=== PATIENT | male | born 1980 | race Caucasian/White ===

== ENCOUNTER 2017-09-05 08:12 | Inpatient (IN) | payer OTHER ==
[~2017-09-05] VITALS: Ht 177.8 cm; Wt 90.7 kg
[~2017-09-05 08:12] MED LIST: ACETAMINOPHEN-1 EAC1 PO; AZITHROMYCIN 2250 MG PO; BACTRIM DS TAB1 EACH PO; BENZONATATE200 MG PO; CLEOCIN HCL300 MG PO; CYCLOBENZAPRINE5 MG PO; DOXYCYCLINE 10100 MG PO; FLEXERIL PO; HYDROCODON-ACE1 EAC7 PO; IBUPROFEN 800800 M1 PO; IBUPROFEN 800800 MG PO; MEDROLDOSEPACK PO; NAPROSYN375 MG PO; NAPROSYN500 MG PO; NOHOMEMEDICATIONS; NORCO 5-325 TA1 EAC1 PO; NORCO 5-325 TA1 EACH PO; PENICILLIN VK250 MG PO; PERCOCET 5-3251 EACH PO; PREDNISONE 20 M20 M1 PO; PREDNISONE50 MG PO; TINACTIN108 GM TP; TRAMADOL 50 MG50 MG PO; TRIAMCINOLONE A15 G1 TP; VENTOLIN HFA 1818 GM INH; ZPAK PO
[2017-09-05 08:21] VITALS: BP 142/101
[2017-09-05 08:41] LABS: HEMATOCRIT 46.5 % (42.0-52.0); HEMOGLOBIN 16.2 gm/dL (14.0-18.0); MCH 32.3 pg (26.0-34.0); MCHC 34.9 g/dL (28.0-37.0); MCV 92.6 fL (80.0-100.0); MPV 7.8 fl. (7.2-11.1); NUCLEATED RBCS 0 /100WBC; PLATELET COUNT* 287 thou/uL (150-400); RBC 5.02 mil/uL (4.50-6.00); RDW-CV 12.5 % (10.5-14.5); WBC 13.8 thou/uL (4.0-11.0)
[2017-09-05 08:47] LABS: CALCIUM 9.6 mg/dL (8.5-10.1); CREATININE 1.1 mg/dL (0.6-1.3); POTASSIUM 3.3 mmol/L (3.5-5.1)
[2017-09-05 08:52] LABS: ALBUMIN 4.1 g/dL (3.4-5.0); TOTAL BILIRUBIN 0.9 mg/dL (<0.1-1.0); TOTAL PROTEIN 7.8 g/dL (6.4-8.2)
[2017-09-05 09:13] LABS: URINE BLOOD 3+ (Negative); URINE CLARITY CLEAR; URINE COLOR YELLOW; URINE GLUCOSE-RANDOM NEGATIVE (Negative); URINE KETONES 2+ (Negative); URINE LEUKOCYTES-REFLEX NEGATIVE (Negative); URINE NITRITE-REFLEX NEGATIVE (Negative); URINE PROTEIN 1+ (Negative)
[2017-09-05 09:14] LABS: ABSOLUTE BASOPHILS 0.1 thou/uL (0.0-0.2); ABSOLUTE EOSINOPHILS 0.3 thou/uL (0.0-0.7); ABSOLUTE LYMPHOCYTES 0.8 thou/uL (0.8-5.3); ABSOLUTE MONOCYTES 0.8 thou/uL (0.0-1.2); ABSOLUTE NEUTROPHILS 11.7 thou/uL (1.6-8.1); PLATELET ESTIMATE ADEQUATE
[2017-09-05 09:16] LABS: ICTOTEST (BILI CONFIRMATORY) Negative (Negative); URINE BILIRUBIN 1+ (Negative)
[2017-09-05 09:18] LABS: SQUAMOUS 4-10 Moderate /LPF (0-3); URINE RBC >20 Many /HPF (0-2); URINE WBC-REFLEX 0-5 Rare /HPF (0-5)
[2017-09-05 09:19] LABS: BACTERIA-REFLEX 1-9 Few /HPF (None Seen); CASTS None Seen /LPF (None Seen); CRYSTALS None Seen /LPF (None Seen); MUCUS None Seen strn/LPF (None Seen)
[2017-09-05 10:36] VITALS: BP 140/75
[2017-09-05 11:08] LABS: CALCIUM 9.4 mg/dL (8.5-10.1); CREATININE 1.2 mg/dL (0.6-1.3); MAGNESIUM 2.1 mg/dL (1.8-2.4); POTASSIUM 3.3 mmol/L (3.5-5.1)
[2017-09-05 11:23] VITALS: BP 142/88
[2017-09-05 16:00] VITALS: BP 126/89
--- NOTE | 2017-09-05 16:06 | NUR ---
CM SPOKE TO THE PATIENT TO DISCUSS HOME SITUATION, DISCHARGE PLANNING, AND TO INFORM OF THE ROLE OF CM. PATIENT ALERT, ORIENTED, AND INDEPENDENT WITH ADL'S. PATIENT RESIDES AT HOME WITH FATHER. PATIENT USES 0 DME. PATIENT DOES NOT CURRENTLY HAVE INSURANCE. CM PROVIDED THE PATIENT WITH A COMMUNITY RESOURCE LIST AND A PRESCRIPTION ASSISTANCE CARD. CM ALSO SENT A REFERRAL TO [facility]. CM WILL REMAIN AVIALABLE TO ASSIST AND FOLLOW NEEDED.
--- NOTE | 2017-09-05 19:25 | NUR ---
PATIENT REMAINED ALERT AND ORIENTED X'S 4. VITAL SIGNS AND SPO2 STABLE. IV CLEAN, FLUIDS INFUSING. PAIN CONTROLLED WITH PAIN MEDS. HAD A BOUT A NAUSEA WHEN DILAUDID WAS GIVEN. ZOFRAN GIVEN, NAUSEA SUBSIDED. UP AD KARO. CALL LIGHT WITHIN REACH. WILL CONTINUE TO MONITOR.
[2017-09-05 19:30] VITALS: BP 143/98
[2017-09-06] VITALS (7 sets, daily range): BP systolic 125–143; BP diastolic 79–98
--- NOTE | 2017-09-06 04:45 | NUR ---
PATIENT HAS REMAINED ALERT AND ORIENTED X 4 THROUGHOUT THE SHIFT AND RESTING AT INTERVALS ON HOURLY ROUNDS. MEDICATED FOR LEFT FLANK PAIN X 2 THIS SHIFT TO GOOD EFFECT. NO NAUSEA. NPO AT MIDNIGHT. URINE OUTPUT STRAINED WITHOUT STONES RETRIEVED. VITAL SIGNS STABLE. CONTINUE TO MONITOR.
[2017-09-06 06:29] LABS: HEMATOCRIT 42.5 % (42.0-52.0); HEMOGLOBIN 14.6 gm/dL (14.0-18.0); MCH 32.6 pg (26.0-34.0); MCHC 34.4 g/dL (28.0-37.0); MCV 94.6 fL (80.0-100.0); MPV 7.9 fl. (7.2-11.1); RBC 4.49 mil/uL (4.50-6.00); RDW-CV 12.3 % (10.5-14.5); WBC 9.3 thou/uL (4.0-11.0)
[2017-09-06 06:36] LABS: CALCIUM 8.5 mg/dL (8.5-10.1); CREATININE 1.1 mg/dL (0.6-1.3)
[2017-09-06] MEDS ORDERED: HYDROCODONE-AP1 EAC6 PO (13:05)
[2017-09-06] MEDS ORDERED: CIPRO250 M1 PO (13:06)
--- NOTE | 2017-09-06 14:44 | NUR ---
PATIENT LEFT UNIT AT 1400. ALERT AND ORIENTED X4. UP AD KARO IN ROOM. IV DC'D. PAIN BEING MANAGED WITH PAIN MEDICATION RECEIVED IN THE PACU. DENIES NAUEA. VSS ON ROOM AIR. HOURLY ROUNDS HAVE BEEN MAINTAINED THROUGHOUT SHIFT WHILE ON UNIT. LEFT WITH UNRELATED ADULT VIA CAR.
--- NOTE | 2017-09-24 08:22 | OP ---
[facility] [address] [place] [address] OPERATIVE REPORT Name: JEROD MARTINEZ Room: [address] .R.#: [id number] Admission: 09/05/17 Attend Phys: Dipesh Caro, Discharge: 09/06/17 Date of : 78 Report #: [id number] THIS REPORT FOR: //name// CC: Zack Caro SURGEON: Gavin James MD. PREOPERATIVE DIAGNOSIS: Left ureteral stone. POSTOPERATIVE DIAGNOSIS: Left ureteral stone. PROCEDURE: [facility]edar cystoscopy with left retrograde pyelogram, left ureteroscopy, holmium laser stone and double-J stent placement. COMPLICATIONS: None. INDICATIONS: A 36-year-old white male with a history of severe left flank pain, went to [facility] and then came to [place] [facility]. He has had 2 trips to the Emergency Room. He is still dependent on IV narcotics. He was given all options and wishes to have ureteroscopy. He understands risks of bleeding, infection, another procedure, cardiovascular and pulmonary complications, ureteral stricture, the fact that he will have a ureteral stent, which must be removed. He voiced understanding of that. He understands he also may have recurrent stones. DESCRIPTION OF PROCEDURE: After informed consent was obtained, the patient was sterilely prepped and draped in dorsal lithotomy position and given preoperative antibiotics. Cystoscopy was carried out. No abnormalities were seen in the bladder. Left retrograde pyelogram was performed which showed the filling defect at the proximal left ureter. He also had some very large phleboliths in the left lower quadrant, but not in the ureter. The stone was approximately 7-8 mm in size. I first placed a sensor wire and then dilated the ureteral orifice. It was very small, dilated with a 12-Slovenian ureteral balloon dilator and then placed a ureteral access sheath and then looked up with the ureteroscope. The ureteral access sheath would not easily slide past up over the iliac vessels or really much past the ureteral orifice, so I stopped any attempt to get the ureteral access sheath up any further, but I was able to advance the flexible ureteroscope. Stone was seen, broken into several pieces; however, then they washed retrograde up into the kidney and I was unable to place the scope secondary to impingement from the ureteral access sheath. The length of it was too long. This was 36, so I pulled the ureteral access sheath out and then slid the ureteroscope up over the sensor wire, leaving the ZIPwire as a safety wire the entire time. Then, the stone was seen in the kidney broken up. Everything looked like it was probably broken up into less than 2 mm pieces. I was able to look in several calices and did not see any other stones. A 4.8 x 20 stent was then placed showing good curl in the kidney and [place] [address] OPERATIVE REPORT Name: JEROD MARTINEZ Room: [address] [facility].#: [id number] Admission: 09/05/17 Attend Phys: Dipesh Caro, Discharge: 09/06/17 Date of : 78 Report #: [id number] The plan will be to remove the stent in approximately 10 days. We will have the patient do inversion exercises. <ELECTRONICALLY SIGNED> By: Gavin James MD 09/24/17 0822 [id number] James MD /nt
== END 2017-09-06 14:00 | disposition home or self-care (01) | DRG 670 ==
LOC: M.ERS 08:12 → M.TBA-ER 09:57 → M.ORTHSURG 09:57
PROVIDERS: Emergency Medicine Emergency Medical Services; ADMIT Family Medicine
PROC: BT1FYZZ Fluoroscopy of Left Kidney, Ureter and Bladder using Other Contrast (ICD-10-PCS; principal; 2017-09-06)
PROC: 0T778DZ Dilation of Left Ureter with Intraluminal Device, Via Natural or Artificial Opening Endoscopic (ICD-10-PCS; principal; 2017-09-06)
PROC: 0TC78ZZ Extirpation of Matter from Left Ureter, Via Natural or Artificial Opening Endoscopic (ICD-10-PCS; principal; 2017-09-06)
DX: N20.1 Calculus of ureter (principal); J45.909 Unspecified asthma, uncomplicated; F17.210 Nicotine dependence, cigarettes, uncomplicated; E87.6 Hypokalemia; Z87.81 Personal history of (healed) traumatic fracture; Z79.899 Other long term (current) drug therapy; Z88.0 Allergy status to penicillin; Z91.041 Radiographic dye allergy status; Z28.21 Immunization not carried out because of patient refusal

== ENCOUNTER 2017-09-24 08:25 | Emergency (ER) | payer OTHER ==
[~2017-09-24] VITALS: Ht 182.9 cm; Wt 83.9 kg
[~2017-09-24 08:25] MED LIST changes: +CIPRO250 M1 PO; +HYDROCODONE-AP1 EAC6 PO
[2017-09-24 08:48] LABS: URINE BILIRUBIN NEGATIVE (Negative); URINE BLOOD 3+ (Negative); URINE CLARITY SL CLOUDY; URINE COLOR RED; URINE GLUCOSE-RANDOM NEGATIVE (Negative); URINE KETONES TRACE (Negative); URINE PROTEIN 3+ (Negative)
[2017-09-24 08:52] LABS: ABSOLUTE EOSINOPHILS 0.3 thou/uL (0.0-0.7); ABSOLUTE LYMPHOCYTES 1.4 thou/uL (0.8-5.3); ABSOLUTE MONOCYTES 0.6 thou/uL (0.0-1.2); ABSOLUTE NEUTROPHILS 4.9 thou/uL (1.6-8.1); BASOPHILS 0.6 %; EOSINOPHILS 3.6 %; HEMOGLOBIN 14.6 gm/dL (14.0-18.0); LYMPHOCYTES 19.5 %; MCH 32.4 pg (26.0-34.0); MCHC 34.9 g/dL (28.0-37.0); MONOCYTES 8.9 %; MPV 7.9 fl. (7.2-11.1); NUCLEATED RBCS 0 /100WBC; PLATELET COUNT* 222 thou/uL (150-400); POLYS 67.4 %; RBC 4.51 mil/uL (4.50-6.00); RDW-CV 12.5 % (10.5-14.5); WBC 7.3 thou/uL (4.0-11.0)
[2017-09-24 08:56] LABS: BACTERIA-REFLEX 1-9 Few /HPF (None Seen); CASTS None Seen /LPF (None Seen); CRYSTALS None Seen /LPF (None Seen); MUCUS 0-3 Light strn/LPF (None Seen); SQUAMOUS 0-3 Few /LPF (0-3); URINE LEUKOCYTES-REFLEX 2+ (Negative); URINE NITRITE-REFLEX POSITIVE (Negative); URINE RBC >20 Many /HPF (0-2); URINE WBC-REFLEX 6-15 Few /HPF (0-5)
[2017-09-24 09:03] LABS: CALCIUM 8.4 mg/dL (8.5-10.1); CREATININE 0.9 mg/dL (0.6-1.3); POTASSIUM 3.8 mmol/L (3.5-5.1)
[2017-09-24 09:07] LABS: ALBUMIN 3.4 g/dL (3.4-5.0); TOTAL BILIRUBIN 0.3 mg/dL (<0.1-1.0); TOTAL PROTEIN 6.6 g/dL (6.4-8.2)
[2017-09-24] MEDS ORDERED: NORCO 5-325 TA1 EACH PO (10:57)
[2017-09-24] MEDS ORDERED: IBUPROFEN 800800 M1 PO (10:57)
[2017-09-24] MEDS ORDERED: FLOMAX0.4 MG PO (10:57)
[2017-09-24] MEDS ORDERED: BACTRIM DS TAB1 EACH PO (10:58)
[2017-09-24 11:13] VITALS: BP 129/89
== END 2017-09-24 11:14 | disposition home or self-care (01) ==
LOC: M.ERS 08:25
PROVIDERS: Emergency Medicine Emergency Medical Services
DX: N20.0 Calculus of kidney (principal); R31.9 Hematuria, unspecified; J45.909 Unspecified asthma, uncomplicated; Z87.442 Personal history of urinary calculi; Z88.0 Allergy status to penicillin; Z72.0 Tobacco use

== ENCOUNTER 2018-03-18 21:36 | Emergency (ER) | payer OTHER ==
[~2018-03-18] VITALS: Ht 182.9 cm; Wt 86.2 kg
[~2018-03-18 21:36] MED LIST changes: +FLOMAX0.4 MG PO
[2018-03-18] MEDS ORDERED: NORCO 7.5-3251 EACH PO (23:25)
[2018-03-18] MEDS ORDERED: ONDANSETRON HCL4 M2 PO (23:25)
[2018-03-18 23:33] VITALS: BP 125/80
== END 2018-03-18 23:34 | disposition home or self-care (01) ==
LOC: M.ERS 21:36
DX: S06.0X0A Concussion without loss of consciousness, initial encounter (principal); J45.909 Unspecified asthma, uncomplicated; F17.210 Nicotine dependence, cigarettes, uncomplicated; Z88.0 Allergy status to penicillin; Z91.041 Radiographic dye allergy status; W22.8XXA Striking against or struck by other objects, initial encounter; Y93.89 Activity, other specified; Y92.89 Other specified places as the place of occurrence of the external cause; Y99.8 Other external cause status

== ENCOUNTER 2018-08-17 10:08 | Emergency (ER) | payer OTHER ==
[~2018-08-17] VITALS: Ht 182.9 cm; Wt 88.5 kg
[~2018-08-17 10:08] MED LIST changes: +NORCO 7.5-3251 EACH PO; +ONDANSETRON HCL4 M2 PO
[2018-08-17 10:56] LABS: INFLUENZA A ANTIGEN None Detected (None Detect); INFLUENZA B ANTIGEN None Detected (None Detect)
[2018-08-17 11:15] LABS: ABSOLUTE EOSINOPHILS 0.2 thou/uL (0.0-0.7); ABSOLUTE LYMPHOCYTES 1.3 thou/uL (0.8-5.3); ABSOLUTE MONOCYTES 0.6 thou/uL (0.0-1.2); ABSOLUTE NEUTROPHILS 3.8 thou/uL (1.6-8.1); BASOPHILS 0.8 %; EOSINOPHILS 3.6 %; HEMOGLOBIN 16.4 gm/dL (14.0-18.0); LYMPHOCYTES 21.6 %; MCH 32.6 pg (26.0-34.0); MCHC 34.2 g/dL (28.0-37.0); MCV 95.2 fL (80.0-100.0); MONOCYTES 10.2 %; MPV 7.9 fl. (7.2-11.1); NUCLEATED RBCS 0 /100WBC; PLATELET COUNT* 202 thou/uL (150-400); POLYS 63.8 %; RBC 5.04 mil/uL (4.50-6.00); RDW-CV 12.9 % (10.5-14.5); WBC 5.9 thou/uL (4.0-11.0)
[2018-08-17] MEDS ORDERED: ZOFRAN4 MG PO (11:23)
[2018-08-17] MEDS ORDERED: TESSALON PERLE100 MG PO (11:23)
[2018-08-17 11:32] LABS: CALCIUM 9.9 mg/dL (8.5-10.1); CREATININE 0.9 mg/dL (0.6-1.3); POTASSIUM 4.4 mmol/L (3.5-5.1)
[2018-08-17 11:37] LABS: TOTAL BILIRUBIN 0.5 mg/dL (<0.1-1.0); TOTAL PROTEIN 7.7 g/dL (6.4-8.2)
[2018-08-17 12:49] VITALS: BP 124/84
== END 2018-08-17 12:49 | disposition home or self-care (01) ==
LOC: M.ERS 10:08
PROVIDERS: Personal Emergency Response Attendant
DX: J06.9 Acute upper respiratory infection, unspecified (principal); F17.210 Nicotine dependence, cigarettes, uncomplicated; J45.909 Unspecified asthma, uncomplicated; Z88.0 Allergy status to penicillin; Z91.041 Radiographic dye allergy status; Z87.442 Personal history of urinary calculi

== ENCOUNTER 2018-11-24 11:07 | Emergency (ER) | payer OTHER ==
[~2018-11-24] VITALS: Ht 182.9 cm; Wt 86.2 kg
[~2018-11-24 11:07] MED LIST changes: +TESSALON PERLE100 MG PO; +ZOFRAN4 MG PO
[2018-11-24] MEDS ORDERED: PROAIR HFA8.5 GM INH ×2 (11:18→12:56)
[2018-11-24] MEDS ORDERED: PREDNISONE 20 M20 MG PO (12:56)
[2018-11-24] MEDS ORDERED: CLARITIN10 MG PO (12:56)
[2018-11-24] MEDS ORDERED: ADVAIR 100-501 EACH INH (12:59)
[2018-11-24 13:25] VITALS: BP 120/88
--- NOTE | 2018-11-25 14:31 | EKG ---
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1980 Requested By: Judith Mathur Order Number: [id number] MD: Jasbir Hatch Measurements Intervals [place] Rate: 73 P: 43 MS: 153 QRS: 54 QRSD: 95 T: 42 QT: 398 QTc: 439 Interpretive Statements Sinus rhythm Probable left ventricular hypertrophy ST elev, probable normal early repol pattern Baseline wander in lead(s) V2 Compared to ECG 10/20/2013 17:59:45 ST (T wave) deviation now present Electronically Signed On 11-25-2018 14:30:49 CDT by Jasbir Hatch [email or web address] <ELECTRONICALLY SIGNED> By: Jasbir Hatch MD, FAC 11/25/18 1430 1152 1152 Jasbir Hatch MD, [facility] /EPI
== END 2018-11-24 13:26 | disposition home or self-care (01) ==
LOC: M.ERS 11:07
DX: J45.901 Unspecified asthma with (acute) exacerbation (principal); F17.210 Nicotine dependence, cigarettes, uncomplicated; Z87.442 Personal history of urinary calculi; Z88.0 Allergy status to penicillin; Z91.041 Radiographic dye allergy status

== ENCOUNTER 2018-12-10 08:17 | Emergency (ER) | payer OTHER ==
[~2018-12-10] VITALS: Ht 182.9 cm; Wt 90.7 kg
[~2018-12-10 08:17] MED LIST changes: +ADVAIR 100-501 EACH INH; +CLARITIN10 MG PO; +PREDNISONE 20 M20 MG PO; +PROAIR HFA8.5 GM INH
[2018-12-10] MEDS ORDERED: CLEOCIN HCL150 MG PO (08:35)
[2018-12-10] MEDS ORDERED: ULTRAM 50MG TAB50 MG PO (08:35)
[2018-12-10 08:39] VITALS: BP 146/109
== END 2018-12-10 08:40 | disposition home or self-care (01) ==
LOC: M.ERS 08:17
DX: K02.9 Dental caries, unspecified (principal); F17.210 Nicotine dependence, cigarettes, uncomplicated; J45.909 Unspecified asthma, uncomplicated; Z88.0 Allergy status to penicillin; Z91.041 Radiographic dye allergy status; Z87.442 Personal history of urinary calculi

== ENCOUNTER 2019-08-02 17:55 | Emergency (ER) | payer OTHER ==
[~2019-08-02] VITALS: Ht 182.9 cm; Wt 90.7 kg
[~2019-08-02 17:55] MED LIST changes: +CLEOCIN HCL150 MG PO; +ULTRAM 50MG TAB50 MG PO
[2019-08-02 19:44] LABS: INFLUENZA A ANTIGEN Negative (Negative)
[2019-08-02] MEDS ORDERED: PROAIR HFA8.5 GM INH (20:37)
[2019-08-02] MEDS ORDERED: TAMIFLU75 MG PO (20:37)
[2019-08-02] MEDS ORDERED: PREDNISONE 10 M10 MG PO (20:37)
[2019-08-02] MEDS ORDERED: TYLENOL WITH CO1 TA1 PO (20:38)
[2019-08-02 21:05] VITALS: BP 138/76
== END 2019-08-02 21:05 | disposition home or self-care (01) ==
LOC: M.ERS 17:55
PROVIDERS: Physician Assistant
DX: J45.901 Unspecified asthma with (acute) exacerbation (principal); J10.1 Influenza due to other identified influenza virus with other respiratory manifestations; F17.210 Nicotine dependence, cigarettes, uncomplicated; Z87.442 Personal history of urinary calculi; Z88.0 Allergy status to penicillin; Z88.8 Allergy status to other drugs, medicaments and biological substances

== ENCOUNTER 2019-08-19 02:53 | Emergency (ER) | payer OTHER ==
[~2019-08-19] VITALS: Ht 182.9 cm; Wt 90.7 kg
[~2019-08-19 02:53] MED LIST changes: +PREDNISONE 10 M10 MG PO; +TAMIFLU75 MG PO; +TYLENOL WITH CO1 TA1 PO
[2019-08-19 03:19] LABS: HEMATOCRIT 49.6 % (42.0-52.0); HEMOGLOBIN 17.7 gm/dL (14.0-18.0); MCH 33.4 pg (26.0-34.0); MCHC 35.7 g/dL (28.0-37.0); MCV 93.8 fL (80.0-100.0); MPV 8.1 fl. (7.2-11.1); NUCLEATED RBCS 0 /100WBC; PLATELET COUNT* 229 thou/uL (150-400); RBC 5.29 mil/uL (4.50-6.00); RDW-CV 12.4 % (10.5-14.5); WBC 17.7 thou/uL (4.0-11.0)
[2019-08-19 03:30] LABS: CALCIUM 9.4 mg/dL (8.5-10.1); POTASSIUM 4.6 mmol/L (3.5-5.1)
[2019-08-19 03:35] LABS: ALBUMIN 4.5 g/dL (3.4-5.0); TOTAL BILIRUBIN 1.1 mg/dL (<0.1-1.0); TOTAL PROTEIN 8.6 g/dL (6.4-8.2)
[2019-08-19 04:04] LABS: URINE BILIRUBIN NEGATIVE (Negative); URINE BLOOD NEGATIVE (Negative); URINE CLARITY CLEAR; URINE COLOR DARK YELLOW; URINE GLUCOSE-RANDOM TRACE (Negative); URINE KETONES 2+ (Negative); URINE LEUKOCYTES-REFLEX NEGATIVE (Negative); URINE NITRITE-REFLEX NEGATIVE (Negative); URINE PROTEIN TRACE (Negative); URINE UROBILINOGEN 0.2 E.U./dl (0.2-1.0)
[2019-08-19 04:12] LABS: AMP/METHAMP Negative (Negative); BARBITURATES Negative (Negative); BENZODIAZEPINES Negative (Negative); COCAINE Negative (Negative); METHADONE Negative (Negative); OPIATES Negative (Negative); PCP Negative (Negative); THC POSITIVE (Negative)
[2019-08-19 05:32] LABS: ABSOLUTE BASOPHILS 0.2 thou/uL (0.0-0.2); ABSOLUTE LYMPHOCYTES 0.5 thou/uL (0.8-5.3); ABSOLUTE MONOCYTES 0.2 thou/uL (0.0-1.2); ABSOLUTE NEUTROPHILS 16.8 thou/uL (1.6-8.1); ANISOCYTOSIS 1+; PLATELET ESTIMATE ADEQUATE; POIKILOCYTOSIS 1+
[2019-08-19] MEDS ORDERED: TRAMADOL 50 MG50 MG PO (05:35)
[2019-08-19] MEDS ORDERED: ZOFRAN ODT4 MG PO (05:35)
[2019-08-19 05:43] VITALS: BP 142/85
--- NOTE | 2019-08-19 13:43 | EKG ---
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1980 Requested By: Ashutosh Cisneros Order Number: [id number] MD: Naren Lam Measurements Intervals [place] Rate: 85 P: 36 NC: 149 QRS: 57 QRSD: 92 T: 47 QT: 388 QTc: 462 Interpretive Statements Sinus rhythm nonspecific t wave changes Consider left ventricular hypertrophy Compared to ECG 11/24/2018 11:52:31 ST (T wave) deviation seen Electronically Signed On 08-19-2019 13:42:53 MENTALLY IMPAIRED TEACHER by Naren Lam [email or web address] <ELECTRONICALLY SIGNED> By: Naren Lam MD, [facility] 08/19/19 1342 4 Naren Lam MD, FACC /EPI
== END 2019-08-19 05:43 | disposition home or self-care (01) ==
LOC: M.ERS 02:53
PROVIDERS: Emergency Medicine
DX: K52.9 Noninfective gastroenteritis and colitis, unspecified (principal); J45.909 Unspecified asthma, uncomplicated; F17.210 Nicotine dependence, cigarettes, uncomplicated; Z88.0 Allergy status to penicillin; Z91.041 Radiographic dye allergy status; Z87.442 Personal history of urinary calculi; Z79.899 Other long term (current) drug therapy

== ENCOUNTER 2019-09-30 03:58 | Emergency (ER) | payer OTHER ==
[~2019-09-30] VITALS: Ht 152.4 cm; Wt 90.7 kg
[~2019-09-30 03:58] MED LIST changes: +ZOFRAN ODT4 MG PO
[2019-09-30] MEDS ORDERED: HYDROCODON-ACE1 EAC7 PO (04:46)
[2019-09-30] MEDS ORDERED: IBUPROFEN 800800 MG PO (04:46)
[2019-09-30 04:58] VITALS: BP 132/87
== END 2019-09-30 05:02 | disposition home or self-care (01) ==
LOC: M.ERS 03:58
DX: S90.02XA Contusion of left ankle, initial encounter (principal); J45.909 Unspecified asthma, uncomplicated; F17.210 Nicotine dependence, cigarettes, uncomplicated; Z87.442 Personal history of urinary calculi; Z88.0 Allergy status to penicillin; Z91.041 Radiographic dye allergy status; W22.8XXA Striking against or struck by other objects, initial encounter; Y93.64 Activity, baseball; Y92.89 Other specified places as the place of occurrence of the external cause; Y99.8 Other external cause status

== ENCOUNTER 2019-12-23 08:21 | Emergency (ER) | payer OTHER ==
[~2019-12-23] VITALS: Ht 182.9 cm; Wt 93.0 kg
[2019-12-23] MEDS ORDERED: PREDNISONE 20 M20 M1 PO (09:10)
[2019-12-23] MEDS ORDERED: VENTOLIN HFA 1818 GM INH (09:10)
[2019-12-23 09:25] VITALS: BP 125/82
== END 2019-12-23 09:25 | disposition home or self-care (01) ==
LOC: M.ERS 08:21
DX: J45.901 Unspecified asthma with (acute) exacerbation (principal); F17.210 Nicotine dependence, cigarettes, uncomplicated; Z87.442 Personal history of urinary calculi; Z88.0 Allergy status to penicillin; Z88.8 Allergy status to other drugs, medicaments and biological substances

== ENCOUNTER 2020-07-31 06:38 | Emergency (ER) | payer OTHER ==
[~2020-07-31] VITALS: Ht 182.9 cm; Wt 93.0 kg
[2020-07-31] MEDS ORDERED: VENTOLIN HFA 1818 GM INH (07:36)
[2020-07-31] MEDS ORDERED: PREDNISONE50 MG PO (07:36)
[2020-07-31 07:45] VITALS: BP 146/110
== END 2020-07-31 07:45 | disposition home or self-care (01) ==
LOC: M.ERS 06:38
DX: J45.909 Unspecified asthma, uncomplicated (principal); F17.210 Nicotine dependence, cigarettes, uncomplicated; Z91.041 Radiographic dye allergy status; Z88.0 Allergy status to penicillin; Z87.442 Personal history of urinary calculi

== ENCOUNTER 2020-11-01 14:32 | Emergency (ER) | payer OTHER ==
[~2020-11-01] VITALS: Ht 182.9 cm; Wt 97.5 kg
[2020-11-01 15:03] LABS: URINE BILIRUBIN NEGATIVE (Negative); URINE BLOOD NEGATIVE (Negative); URINE CLARITY CLEAR; URINE COLOR YELLOW; URINE GLUCOSE-RANDOM TRACE (Negative); URINE KETONES NEGATIVE (Negative); URINE LEUKOCYTES-REFLEX NEGATIVE (Negative); URINE NITRITE-REFLEX NEGATIVE (Negative); URINE PROTEIN NEGATIVE (Negative); URINE UROBILINOGEN 0.2 E.U./dl (0.2-1.0)
[2020-11-01 15:16] LABS: ABSOLUTE BASOPHILS 0.1 thou/uL (0.0-0.2); ABSOLUTE EOSINOPHILS 0.2 thou/uL (0.0-0.7); ABSOLUTE LYMPHOCYTES 1.1 thou/uL (0.8-5.3); ABSOLUTE MONOCYTES 0.7 thou/uL (0.0-1.2); ABSOLUTE NEUTROPHILS 6.2 thou/uL (1.6-8.1); BASOPHILS 0.9 %; HEMATOCRIT 44.7 % (42.0-52.0); HEMOGLOBIN 15.7 gm/dL (14.0-18.0); LYMPHOCYTES 13.3 %; MCH 34.5 pg (26.0-34.0); MCHC 35.1 g/dL (28.0-37.0); MCV 98.3 fL (80.0-100.0); MONOCYTES 8.6 %; MPV 7.8 fl. (7.2-11.1); NUCLEATED RBCS 0 /100WBC; PLATELET COUNT* 207 thou/uL (150-400); POLYS 75.2 %; RBC 4.55 mil/uL (4.50-6.00); RDW-CV 12.5 % (10.5-14.5); WBC 8.3 thou/uL (4.0-11.0)
[2020-11-01 15:18] LABS: CALCIUM 10.1 mg/dL (8.5-10.1); CREATININE 0.8 mg/dL (0.6-1.3); POTASSIUM 3.6 mmol/L (3.5-5.1)
[2020-11-01 15:23] LABS: ALBUMIN 4.1 g/dL (3.4-5.0); TOTAL BILIRUBIN 0.6 mg/dL (<0.1-1.0)
[2020-11-01] MEDS ORDERED: CYCLOBENZAPRINE5 MG PO (16:16)
[2020-11-01] MEDS ORDERED: NORCO5 PO ×2 (16:16→16:26)
[2020-11-01 16:25] VITALS: BP 132/83
== END 2020-11-01 16:28 | disposition home or self-care (01) ==
LOC: M.ERS 14:32
PROVIDERS: Physician Assistant
DX: M54.6 Pain in thoracic spine (principal); R10.84 Generalized abdominal pain; J45.909 Unspecified asthma, uncomplicated; F17.210 Nicotine dependence, cigarettes, uncomplicated; Z88.0 Allergy status to penicillin; Z91.041 Radiographic dye allergy status; Z87.442 Personal history of urinary calculi

== ENCOUNTER 2021-03-06 00:23 | Emergency (ER) | payer OTHER ==
[~2021-03-06] VITALS: Ht 182.9 cm; Wt 98.9 kg
[~2021-03-06 00:23] MED LIST changes: +NORCO5 PO
[2021-03-06] MEDS ORDERED: PROAIR HFA8.5 GM INH (01:11)
[2021-03-06] MEDS ORDERED: KEFLEX250 MG PO (03:28)
[2021-03-06] MEDS ORDERED: HYDROCODON-ACE1 EAC8 PO (03:35)
[2021-03-06 03:48] VITALS: BP 152/95
== END 2021-03-06 03:48 | disposition home or self-care (01) ==
LOC: M.ERS 00:23
DX: H92.02 Otalgia, left ear (principal); J02.9 Acute pharyngitis, unspecified; J45.909 Unspecified asthma, uncomplicated; F17.210 Nicotine dependence, cigarettes, uncomplicated; Z88.0 Allergy status to penicillin; Z91.041 Radiographic dye allergy status; Z87.442 Personal history of urinary calculi

== ENCOUNTER 2021-05-10 06:35 | Emergency (ER) | payer OTHER ==
[~2021-05-10] VITALS: Ht 182.9 cm; Wt 99.8 kg
[~2021-05-10 06:35] MED LIST changes: +HYDROCODON-ACE1 EAC8 PO; +KEFLEX250 MG PO
[2021-05-10] MEDS ORDERED: OMEPRAZOLE 20 M20 M1 PO (06:51)
[2021-05-10 07:21] LABS: ABSOLUTE BASOPHILS 0.1 thou/uL (0.0-0.2); ABSOLUTE EOSINOPHILS 0.3 thou/uL (0.0-0.7); ABSOLUTE LYMPHOCYTES 1.4 thou/uL (0.8-5.3); ABSOLUTE MONOCYTES 0.5 thou/uL (0.0-1.2); ABSOLUTE NEUTROPHILS 3.1 thou/uL (1.6-8.1); EOSINOPHILS 5.1 %; HEMATOCRIT 47.1 % (42.0-52.0); HEMOGLOBIN 16.7 gm/dL (14.0-18.0); LYMPHOCYTES 26.6 %; MCH 34.2 pg (26.0-34.0); MCHC 35.4 g/dL (28.0-37.0); MCV 96.5 fL (80.0-100.0); MONOCYTES 9.7 %; MPV 7.5 fl. (7.2-11.1); NUCLEATED RBCS 0 /100WBC; PLATELET COUNT* 212 thou/uL (150-400); POLYS 57.6 %; RBC 4.88 mil/uL (4.50-6.00); RDW-CV 12.7 % (10.5-14.5); WBC 5.4 thou/uL (4.0-11.0)
[2021-05-10 07:22] LABS: URINE BILIRUBIN NEGATIVE (Negative); URINE BLOOD NEGATIVE (Negative); URINE CLARITY CLEAR; URINE COLOR YELLOW; URINE GLUCOSE-RANDOM TRACE (Negative); URINE KETONES NEGATIVE (Negative); URINE LEUKOCYTES-REFLEX NEGATIVE (Negative); URINE NITRITE-REFLEX NEGATIVE (Negative); URINE PROTEIN 1+ (Negative); URINE SPECIFIC GRAVITY 1.015 (1.005-1.030); URINE UROBILINOGEN 0.2 E.U./dl (0.2-1.0)
[2021-05-10 07:32] LABS: CALCIUM 8.8 mg/dL (8.5-10.1); POTASSIUM 4.1 mmol/L (3.5-5.1)
[2021-05-10 07:37] LABS: TOTAL BILIRUBIN 0.3 mg/dL (<0.1-1.0); TOTAL PROTEIN 7.9 g/dL (6.4-8.2)
[2021-05-10] MEDS ORDERED: ZOFRAN ODT4 MG PO (08:29)
[2021-05-10 08:42] VITALS: BP 148/110
--- NOTE | 2021-05-11 11:19 | EKG ---
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
== END 2021-05-10 08:42 | disposition home or self-care (01) ==
LOC: M.ERS 06:35
PROVIDERS: Emergency Medicine
DX: K76.0 Fatty (change of) liver, not elsewhere classified (principal); J45.909 Unspecified asthma, uncomplicated; Z87.442 Personal history of urinary calculi; F17.210 Nicotine dependence, cigarettes, uncomplicated; Z88.0 Allergy status to penicillin; Z88.8 Allergy status to other drugs, medicaments and biological substances

== ENCOUNTER 2021-07-10 09:52 | Emergency (ER) | payer OTHER ==
[~2021-07-10] VITALS: Ht 182.9 cm; Wt 100.2 kg
[~2021-07-10 09:52] MED LIST changes: +OMEPRAZOLE 20 M20 M1 PO
[2021-07-10] MEDS ORDERED: VENTOLIN HFA 1818 GM INH (11:15)
[2021-07-10] MEDS ORDERED: PROMETHAZINE V120 ML PO (11:15)
[2021-07-10] MEDS ORDERED: ALBUTEROL2.5 MG/31 INH (11:15)
[2021-07-10] MEDS ORDERED: MEDROLDOSEPACK PO (11:15)
[2021-07-10 11:26] VITALS: BP 144/91
== END 2021-07-10 11:27 | disposition home or self-care (01) ==
LOC: M.ERS 09:52
DX: J20.9 Acute bronchitis, unspecified (principal); Z20.822 Contact with and (suspected) exposure to COVID-19; J45.909 Unspecified asthma, uncomplicated; F17.210 Nicotine dependence, cigarettes, uncomplicated; Z79.899 Other long term (current) drug therapy; Z91.02 Food additives allergy status; Z88.0 Allergy status to penicillin